=== PATIENT | female | born 1995 | race Caucasian/White ===

== ENCOUNTER 2018-01-04 18:51 | Emergency (ER) | payer MEDICAID ==
[~2018-01-04] VITALS: Ht 165.1 cm; Wt 73.9 kg
[2018-01-04 19:00] VITALS: BP 110/64; Ht 165.1 cm; Wt 73.9 kg
== END 2018-01-04 21:47 | disposition left against medical advice (07) ==
LOC: ED 18:51
DX: Z53.21 Procedure and treatment not carried out due to patient leaving prior to being seen by health care provider (principal)

== ENCOUNTER 2020-02-18 15:35 | Emergency (ER) | payer MEDICAID ==
[~2020-02-18] VITALS: Ht 165.1 cm; Wt 71.2 kg
[2020-02-18 15:41] VITALS: Ht 165.1 cm; Wt 71.2 kg
[2020-02-18 16:21] LABS: PLATELET COUNT 337 x10^3mcL (130-400); RED CELL DISTRIBUTION WIDTH 13.5 % (11.5-14.5)
[2020-02-18 16:23] LABS: BASOPHIL % 0 % (0-2)
[2020-02-18 16:23] LABS: microscopic required? YES; urine erythrocyte 3+ (NEGATIVE)
[2020-02-18 16:30] LABS: CALCIUM 8.9 mg/dL (8.5-10.1); CARBON DIOXIDE 26.5 mmol/L (21-32); CHLORIDE SERUM 104 mmol/L (98-107); CREATININE SERUM 0.6 mg/dL (0.6-1.0); GFR1 > 60 mL/min; GLUCOSE SERUM 80 mg/dL (74-106); POTASSIUM SERUM 3.7 mmol/L (3.5-5.1); SODIUM SERUM 140 mmol/L (136-145)
[2020-02-18 16:38] LABS: ALBUMIN 3.8 g/dL (3.4-5.0); ALKALINE PHOSPHATASE 56 U/L (46-116); ALT/SGPT 33 U/L (14-59); AST/SGOT 11 U/L (15-37); BILIRUBIN TOTAL 0.2 mg/dL (0.20-1.00); TOTAL PROTEIN, SERUM 7.6 g/dL (6.4-8.2)
[2020-02-18 18:19] VITALS: BP 114/62
== END 2020-02-18 18:19 | disposition home or self-care (01) ==
LOC: ED 15:35
PROVIDERS: Student in an Organized Health Care Education/Training Program
DX: O03.9 Complete or unspecified spontaneous abortion without complication (principal); Z88.0 Allergy status to penicillin
CPT/HCPCS: Q0092